=== PATIENT | female | born 1950 | race Caucasian/White ===

== ENCOUNTER 2020-09-13 15:31 | Emergency (ER) | payer MEDICARE, OTHER ==
[2020-09-13] MEDS ORDERED: BACTRIM 400-801 EACH PO (16:44)
[2020-09-13] MEDS ORDERED: CEPHALEXIN500 MG PO (16:44)
== END 2020-09-13 16:58 | disposition home or self-care (01) ==
LOC: ER1 15:31
DX: S81.801A Unspecified open wound, right lower leg, initial encounter (principal); L03.115 Cellulitis of right lower limb; X58.XXXA Exposure to other specified factors, initial encounter
CPT/HCPCS: 99283

== ENCOUNTER → 2020-11-19 | Outpatient (CLI) | payer MEDICARE ==
[~2020-11-19] MED LIST: BACTRIM 400-801 EACH PO; CEPHALEXIN500 MG PO
[2020-11-19 08:26] LABS: HEMOGLOBIN 14.9 gm/dl (12.3-15.3); RED BLOOD COUNT 4.57 M/UL (4.00-5.10); WHITE BLOOD COUNT 9.9 K/UL (4.5-11.0)
[2020-11-19 08:43] LABS: BUN/CREATININE RATIO 16 (0-10)
[2020-11-21 11:27] LABS: CHOLESTEROL, TOTAL 208 mg/dL (100-199); HDL SIZE 9.2 nm (>=9.2); HDL-C 73 mg/dL (>39); LARGE HDL-P 8.4 umol/L (>=4.8); LARGE VLDL-P 10.5 nmol/L (<=2.7); LDL SIZE 20.9 nm (>20.5); LDL SIZE 20.9 nm (>=20.8); LDL-C 109 mg/dL (0-99); LDL-P 1314 nmol/L (<1000); LP-IR SCORE 71 (<=45); SMALL LDL-P 757 nmol/L (<=527); TRIGLYCERIDES 154 mg/dL (0-149); VLDL SIZE 63.9 nm (<=46.6)
== END ==
LOC: LAB 08:05
PROVIDERS: Emergency Medicine
DX: E03.8 Other specified hypothyroidism (principal); E78.2 Mixed hyperlipidemia; N18.2 Chronic kidney disease, stage 2 (mild); R53.83 Other fatigue
CPT/HCPCS: 36415; 80053; 80061; 83704; 84443; 84550; 85025